=== PATIENT | female | born 1995 | race Caucasian/White ===

== ENCOUNTER 2017-02-13 09:06 | Emergency (ER) | payer BC ==
[2017-02-13 10:46] VITALS: BP 129/8
--- NOTE | 2017-02-13 11:54 | UC ---
Dental HPI - HPI Summary HPI Summary: Pt presents with c/o right upper wisdom tooth pain and swelling sudden onset. Pt is scheduled to have wisdom teeth out in March. 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 - History of Current Complaint Chief Complaint: UCDentalProblem Stated Complaint: DENTAL PAIN Time Seen by Provider: 02/13/17 11:24 Hx Obtained From: Patient Hx Last Menstrual Period: 02/23/17 ?: No Onset/Duration: Sudden Onset, Lasting Days, Still Present Severity: Moderate Aggravating Factor(s): Chewing Alleviating Factor(s): Nothing Related History: Swelling - Allergies/Home Medications Allergies/Adverse Reactions: Allergies Allergy/AdvReac Type Severity Reaction Status Date / Time environmental Allergy Congestion Uncoded 02/13/17 10:47 Home Medications: Home Medications Polyethylene Glycol 3350* [Miralax*] 17 gm PO DAILY PRN 02/13/17 [History Confirmed 02/13/17] PMH/Surg Hx/FS Hx/Imm Hx Previously Healthy: Yes - Surgical History Surgical History: None - Family History Known Family History: Positive: Cardiac Disease - Social History Occupation: Student - [employer] Lives: Dormitory/Roommates Alcohol Use: Occasionally Substance Use Type: None Smoking Status (MU): Never Smoked Tobacco Have You Smoked in the Last Year: No - Immunization History Vaccination Up to Date: Yes Review of Systems Constitutional: Negative Skin: Negative Eyes: Negative ENT: Dental Pain Respiratory: Negative Cardiovascular: Negative Gastrointestinal: Negative Genitourinary: Negative Motor: Negative Neurovascular: Negative Musculoskeletal: Negative Neurological: Negative Psychological: Negative Is Patient Immunocompromised?: No All Other Systems Reviewed And Are Negative: Yes Physical Exam Triage Information Reviewed: Yes Appearance: Well-Appearing Vital Signs: Initial Vital Signs Temp 98.8 F 02/13/17 10:39 Pulse 91 02/13/17 10:39 Resp 18 02/13/17 10:39 BP 129/8 02/13/17 10:39 Eye Exam: Normal ENT Exam: Normal Dental Exam: Other Dental: Positive: Other: - right upper jaw gum swelling, tender with palpation Neck exam: Normal Respiratory Exam: Normal Cardiovascular Exam: Normal Musculoskeletal Exam: Normal Neurological Exam: Normal Psychological Exam: Normal Skin Exam: Normal Dental Complaint Course/Dx - Differential Dx/Diagnosis Differential Diagnosis/Dx: Dental Abscess, Other - dental swelling, Provider Diagnoses: dental swelling. dental abscess Discharge - Discharge Plan Condition: Stable Disposition: HOME Prescriptions: Amoxicillin PO (*) [Amoxicillin 875 MG (*)] 875 mg PO Q12H #14 tab Ibuprofen TAB* [Motrin TAB* 800 MG] 800 mg PO Q8H PRN #30 tab PRN Reason: Pain predniSONE TAB* [Deltasone TAB*] 20 mg PO DAILY #4 tab Patient Education Materials: Dental Abscess (ED) Referrals: [facility] [Outside] Mckinley Ontiveros DMD [Doctor of Dental Medicine] - Additional Instructions: Please follow up with your dental care provider as soon as possible.
== END 2017-02-13 12:19 | disposition home or self-care (01) ==
LOC: UCCORT 09:06
DX: K04.7 Periapical abscess without sinus (principal)
CPT/HCPCS: 99202; G0463